=== PATIENT | female | born 1990 | race Caucasian/White ===

== ENCOUNTER → 2016-12-05 | Outpatient (CLI) | payer BC, OTHER | END | disposition home or self-care (01) | LOC: LABWHC1 16:02 | PROVIDERS: ATTEND Obstetrics & Gynecology | DX: N91.2 Amenorrhea, unspecified (principal) | CPT/HCPCS: 36415; 84702 ==

== ENCOUNTER → 2017-01-08 | Outpatient (CLI) | payer BC, OTHER ==
--- NOTE | 2017-01-08 09:06 | US ---
EXAMINATION TYPE: US pelvic complete DATE OF EXAM: 01/08/2017 8:50 AM COMPARISON: NONE CLINICAL HISTORY: N91.2 amenorrhea, R10.2 Pelvic Pain. Pt states weight gain, amenorrhea, facial hair TECHNIQUE: Transabdominal (TA) Date of LMP: Unknown EXAM MEASUREMENTS: Uterus: 9.5 x 3.4 x 5.9 cm Endometrial Stripe: 0.3 cm Right Ovary: 3.6 x 2.6 x 2.3 cm Left Ovary: 3.3 x 2.3 x 2.3 cm 1. Uterus: Anteverted Heterogeneous 2. Endometrium: wnl 3. Right Ovary: Multiple "string of pearls" follicles suggesting PCOS 4. Left Ovary: Multiple "string of pearls" follicles suggesting PCOS 5. Bilateral Adnexa: wnl 6. Posterior cul-de-sac: wnl IMPRESSION: Multiple small bilateral ovarian follicles. Correlate for polycystic ovarian disease.
[2017-01-08 16:07] LABS: Follicle Stimulating Hormone 6.6 mIU/mL; Prolactin 9.7 ng/mL (3.0-18.6)
== END | disposition home or self-care (01) ==
LOC: RADUSWWP 08:11
PROVIDERS: ATTEND Family Medicine
DX: N91.2 Amenorrhea, unspecified (principal); L67.8 Other hair color and hair shaft abnormalities; R10.2 Pelvic and perineal pain; Z88.6 Allergy status to analgesic agent
CPT/HCPCS: 36415; 76856; 82024; 82533; 82670; 83001; 83002; 84146; 84403; 84439; 84443

== ENCOUNTER → 2018-06-03 | Outpatient (CLI) | payer OTHER ==
--- NOTE | 2018-06-04 02:31 | MR ---
EXAMINATION TYPE: MR brain/cspine wo/w DATE OF EXAM: 06/03/2018 COMPARISON: None HISTORY: Headaches, vision issues, Dizzy spells, hand and arm pain TECHNIQUE: Multiplanar, multisequence images of the brain and brainstem is performed without and with IV contras t, utilizing 7 mL intravenous Gadavist . FINDINGS: Ventricles and sulci appear normal. There is no mass effect nor midline shift. There is no sign of in tracranial hemorrhage. There is no evidence of cerebral edema. Corpus callosum appears normal. Brains tem appears normal. Sella turcica is normal. The cervical vertebra have normal spacing and alignment. Posterior elements are intact. Cervical spin al cord has normal signal pattern without evidence of edema. There is no spinal stenosis. The contras t images show no evidence of cerebral pathologic enhancement. There is no evidence of cervical pathol ogic enhancement. IMPRESSION: Normal MR scan of the brain. Normal MR scan of the cervical spine.
== END ==
LOC: RADMRIMAIN 20:02
PROVIDERS: ATTEND Family Medicine
DX: G60.9 Hereditary and idiopathic neuropathy, unspecified (principal)
CPT/HCPCS: 70553; 72156; A9581

== ENCOUNTER 2025-01-17 16:50 | Emergency (ER) | payer BC ==
--- NOTE | 2025-01-17 17:00 | ED ---
Chest Pain HPI - General Source: patient, RN notes reviewed Mode of arrival: wheelchair Limitations: no limitations <Jim Mattson - Last Filed: 01/17/25 16:59> - General Source: patient, RN notes reviewed, old records reviewed Mode of arrival: wheelchair Limitations: no limitations - History of Present Illness MD Complaint: chest pain, other -: hour(s) Onset: during rest, during exertion Pain Location: left chest Pain Radiation: LUE Severity: moderate Severity scale (1-10): 5 Quality: tightness Consistency: constant, intermittent Improves With: nothing Worsens With: nothing Anginal Symptoms: dyspnea Other Symptoms: palpitations Treatments Prior to Arrival: none <Adam Hutson - Last Filed: 01/26/25 02:51> - General Stated Complaint: left arm numb,chest pain Time Seen by Provider: 01/17/25 16:55 - History of Present Illness Initial Comments: Quick note: This is a 35-year-old female presenting with left arm throbbing upon waking this afternoon x 2 hours ago. Patient Dors is associated left chest heaviness and dizziness. Also endorses general anxiety due to started symptoms. Endorses family cardiac history. Denies hemoptysis, dyspnea, diaphoresis, presyncope. (Jim Mattson) 737 to the ER for throbbing arm pain 2 hours of symptoms. Chest heaviness and dizziness anxiety left-sided chest pain left-sided arm pain (Adam Hutson) - Related Data Previous Rx's Medication Instructions Recorded Meclizine [Antivert] 25 mg PO DAILY 10 Days tab 07/23/16 Allergies Allergy/AdvReac Type Severity Reaction Status Date / Time morphine Allergy Nausea & Verified 01/17/25 17:06 Vomiting Review of Systems ROS Other: All systems not noted in ROS Statement are negative. <Jim Mattson - Last Filed: 01/17/25 16:59> ROS Other: All systems not noted in ROS Statement are negative. <Adam Hutson - Last Filed: 01/26/25 02:51> ROS Statement: Those systems with pertinent positive or pertinent negative responses have been documented in the HPI. Past Medical History Past Medical History: Asthma Additional Past Medical History / Comment(s): OB history: 2 c-sections and 1 spontaneous abortions. History of Any Multi-Drug Resistant Organisms: None Reported Past Surgical History: Section Additional Past Surgical History / Comment(s): surgery for cyst on ovary, D&C Past Anesthesia/Blood Transfusion Reactions: Motion Sickness, Postoperative Nausea & Vomiting (PONV) Past Psychological History: Depression Additional Psychological History / Comment(s): hx of anx 4 yrs ago- ativan at that time. hx of depression 3-4 yrs ago- zoloft at that time. no meds recently. Past Alcohol Use History: Rare Additional Past Alcohol Use History / Comment(s): quit smoking 2012 smoked 8 years 1-2 ppd Past Drug Use History: Marijuana Additional Drug Use History / Comment(s): hx of marijuana and methamphetamine 4 years ago. no drugs since that time. - Past Family History Father Family Medical History: Hypertension Mother Additional Family Medical History / Comment(s): gallbladder <Jim Mattson - Last Filed: 01/17/25 16:59> General Exam <Jim Mattson - Last Filed: 01/17/25 16:59> General appearance: alert, in no apparent distress Head exam: Present: atraumatic, normocephalic, normal inspection Eye exam: Present: normal appearance, PERRL, EOMI. Absent: scleral icterus, conjunctival injection, periorbital swelling ENT exam: Present: normal exam, mucous membranes moist Neck exam: Present: normal inspection. Absent: tenderness, meningismus, lymphadenopathy Respiratory exam: Present: normal lung sounds bilaterally. Absent: respiratory distress, wheezes, rales, rhonchi, stridor Cardiovascular Exam: Present: regular rate, normal rhythm, normal heart sounds. Absent: systolic murmur, diastolic murmur, rubs, gallop, clicks GI/Abdominal exam: Present: soft, normal bowel sounds. Absent: distended, tenderness, guarding, rebound, rigid Extremities exam: Present: normal inspection, full ROM, normal capillary refill. Absent: tenderness, pedal edema, joint swelling, calf tenderness Back exam: Present: normal inspection Neurological exam: Present: alert, oriented X3, CN II-XII intact Psychiatric exam: Present: normal affect, normal mood Skin exam: Present: warm, dry, intact, normal color. Absent: rash <Adam Hutson - Last Filed: 01/26/25 02:51> - General Exam Comments Initial Comments: Visual Physical Exam Vital signs reviewed General: Well-appearing, nontoxic. Patient showing some distress. Head: Normocephalic, atraumatic Eyes: PERRLA, EOMI ENT: Airway patent Chest: Nonlabored breathing Skin: No visual rash, normal skin tone Neuro: Alert and oriented 3 Musculoskeletal: No gross abnormalities (Jim Mattson) Course <Adam Hutson - Last Filed: 01/26/25 02:51> Vital Signs 01/17/25 01/17/25 01/17/25 17:03 18:15 19:35 Temperature 98.5 F 97.8 F Pulse Rate 104 H 94 Pulse Rate [ 105 H Pulse Oximetery ] Respiratory 18 18 Rate Blood Pressure 127/91 122/58 O2 Sat by Pulse 97 97 Oximetry - Reevaluation(s) Reevaluation #1: Medical records reviewed (Adam Hutson) Reevaluation #2: Patient's symptoms improved (Adam Hutson) Reevaluation #3: Patient informed of results and questions answered (Adam Hutson) Reevaluation #4: Was pt. sent in by a medical professional or institution (, PA, HARNESS AND BAG INSPECTOR, urgent care, hospital, or snf...) When possible be specific @ -no Did you speak to anyone other than the patient for history (EMS, parent, family, police, friend...)? What history was obtained from this source @ -no Did you review nursing and triage notes (agree or disagree)? Why? @ -agree Are old charts reviewed (outside hosp., previous admission, EMS record, old EKG, old radiological studies, urgent care reports/EKG's, snf records)? Report findings @ -yes Differential Diagnosis (chest pain, altered mental status, abdominal pain women, abdominal pain men, vaginal bleeding, weakness, fever, dyspnea, syncope, headache, dizziness, GI bleed, back pain, seizure, CVA, palpatations, mental health, musculoskeletal)? @ -prior EKG interpreted by me (3pts min.). @ -yes X-rays interpreted by me (1pt min.). @ -yes negative for acute disease CT interpreted by me (1pt min.). @ -no U/S interpreted by me (1pt. min.). @ -no What testing was considered but not performed or refused? (CT, X-rays, U/S, labs)? Why? @ -none What meds were considered but not given or refused? Why? @ -none Did you discuss the management of the patient with other professionals (professionals i.e. , PA, HARNESS AND BAG INSPECTOR, lab, RT, psych nurse, social sciences research scientist, draw string knotter, teacher, credit products officer, telehealth case manager)? Give summary @ -no Was smoking cessation discussed for >3mins.? @ -no Was critical care preformed (if so, how long)? @ -no Were there social determinants of health that impacted care today? How? (Homelessness, low income, unemployed, alcoholism, drug addiction, transportation, low edu. Level, literacy, decrease access to med. care, fdc, rehab)? @ -none Was there de-escalation of care discussed even if they declined (Discuss DNR or withdrawal of care, Hospice)? DNR status @ -no What co-morbidities impacted this encounter? (DM, HTN, Smoking, COPD, CAD, Cancer, CVA, ARF, Chemo, Hep., AIDS, mental health diagnosis, sleep apnea, morbid obesity)? @ -none Was patient admitted / discharged? Hospital course, mention meds given and route, prescriptions, significant lab abnormalities, going to OR and other pertinent info. @ - 35 female to the ER for chest pain humerus pain no acute findings or symptoms here in the ER patient feels well can be discharged home Discharge Undiagnosed new problem with uncertain prognosis? @ -no Drug Therapy requiring intensive monitoring for toxicity (Heparin, Nitro, Insulin, Cardizem)? @ -no Were any procedures done? @ -no Diagnosis/symptom? @ -Chest pain humerus pain Acute, or Chronic, or Acute on Chronic? @ -Acute Uncomplicated (without systemic symptoms) or Complicated (systemic symptoms)? @ -Complicated Side effects of treatment? @ -no Exacerbation, Progression, or Severe Exacerbation? @ -exacerbation Poses a threat to life or bodily function? How? (Chest pain, [place], [place], pneumonia, PE, COPD, DKA, ARF, appy, cholecystitis, CVA, Diverticulitis, Homicidal, Suicidal, threat to staff... and all critical care pts) @ -no (Adam Hutson) Reevaluation #5: Differential Dyspnea: Coronary syndrome, arrhythmia, tamponade, asthma, COPD, pulmonary embolism, pneumonia, pneumothorax, pulmonary effusion, anaphylaxis, diabetic ketoacidosis, flailed chest, pulmonary contusion, diaphragmatic rupture, anemia, neuromuscular, this is not meant to be an all-inclusive list. (Adam Hutson) Chest Pain MDM <Jim Mattson - Last Filed: 01/17/25 16:59> <Adam Hutson - Last Filed: 01/26/25 02:51> - MDM I completed the quick note portion of this chart signed JAIME Castellanos (Jim Mattson) 35 female to the ER for chest pain humerus pain no acute findings or symptoms here in the ER patient feels well can be discharged home (Adam Hutson) Disposition <Jim Mattson - Last Filed: 01/17/25 16:59> Is patient prescribed a controlled substance at d/c from ED?: No Time of Disposition: 18:35 <Adam Hutson - Last Filed: 01/26/25 02:51> Clinical Impression: Chest pain, Left arm pain, Arm paresthesia, left Disposition: HOME SELF-CARE Condition: Fair Instructions (If sedation given, give patient instructions): Chest Pain (ED), Paresthesia (ED) Referrals: Jonatan Lyles MD [Primary Care Provider] - 1-2 days
[2025-01-17 17:06] VITALS: RESP 18
[2025-01-17 17:34] LABS: Basophils # (A) 0.04 10*3/uL (0.00-0.10); Basophils % (A) 0.5 %; Eosinophils # (A) 0.13 10*3/uL (0.04-0.35); Eosinophils % (A) 1.5 %; HCT 43.7 % (37.2-46.3); HGB 14.8 g/dL (12.0-15.0); Lymphocytes % (A) 39.6 %; MCH 28.8 pg (27.0-32.0); MCHC 33.9 g/dL (32.0-37.0); MCV 85.2 fL (80.0-97.0); Mean Platelet Volume 10.3 fL (9.5-12.2); Monocytes # (A) 0.61 10*3/uL (0.20-1.00); Monocytes % (A) 7.1 %; Neutrophils # (A) 4.38 10*3/uL (1.80-7.70); Neutrophils % (A) 51.1 %; Platelet Count 285 10*3/uL (140-440); RBC 5.13 10*6/uL (4.10-5.20); RDW 13.6 % (11.5-14.5); WBC 8.58 10*3/uL (4.50-10.00)
[2025-01-17 17:42] LABS: INR 0.9 (<1.2)
[2025-01-17 17:43] LABS: Partial Thromboplastin Time 26.2 sec (22.0-30.0); Prothrombin Time 10.4 sec (10.0-12.5)
[2025-01-17 17:49] LABS: ALT 18 U/L (4-34); AST 19 U/L (14-36); African American GFR (CKD) >90 (>60 ml/min/1.73 sqM); Albumin 4.3 g/dL (3.5-5.0); Alkaline Phosphatase 71 U/L (38-126); Anion Gap 8 mmol/L; Blood Urea Nitrogen 15 mg/dL (7-17); Calcium 10.1 mg/dL (8.4-10.2); Carbon Dioxide 26 mmol/L (22-30); Chloride 105 mmol/L (98-107); Glucose 103 mg/dL (74-99); Magnesium 1.9 mg/dL (1.6-2.3); Non-African American GFR(CKD) >90 (>60 ml/min/1.73 sqM); Potassium 4.2 mmol/L (3.5-5.1); Sodium 139 mmol/L (137-145); Total Bilirubin 0.6 mg/dL (0.2-1.3); Total Protein 7.4 g/dL (6.3-8.2)
--- NOTE | 2025-01-17 18:50 | XR ---
EXAMINATION TYPE: XR chest 2V DATE OF EXAM: 01/17/2025 6:40 PM COMPARISON: None CLINICAL INDICATION: Female, 35 years old with history of Chest Pain; TECHNIQUE: XR chest 2V Frontal and lateral views of the chest. FINDINGS: Lungs/Pleura: There is no evidence of pleural effusion, focal consolidation, or pneumothorax. Pulmonary vascularity: Unremarkable. Heart/mediastinum: Cardiomediastinal silhouette is unremarkable. Musculoskeletal: No acute osseous pathology. IMPRESSION: No acute cardiopulmonary disease/process. [facility], , 01/17/2025 6:48 PM
--- NOTE | 2025-01-17 18:51 | XR ---
EXAMINATION TYPE: XR humerus LT DATE OF EXAM: 01/17/2025 6:40 PM COMPARISON: None CLINICAL INDICATION: Female, 35 years old with history of pain, pain TECHNIQUE: XR humerus LT examined in frontal and lateral projections. FINDINGS: No evidence of acute osseous pathology, joint dislocation, or soft tissue swelling. The rem aining portions of the visualized chest are unremarkable. The remaining portions of the visualized c hest are unremarkable. IMPRESSION: No acute osseous pathology. [facility], , 01/17/2025 6:49 PM
[2025-01-17 19:45] VITALS: BP 122/58; PULSE 94; TEMP 97.8
== END 2025-01-17 19:35 | disposition home or self-care (01) ==
LOC: EC 16:50
DX: R07.89 Other chest pain (principal); R20.2 Paresthesia of skin; Z87.891 Personal history of nicotine dependence; Z88.5 Allergy status to narcotic agent
CPT/HCPCS: 36415; 71046; 80053; 83735; 84484; 85025; 85610; 85730; 93005; 99285